=== PATIENT | female | born 1980 | race Caucasian/White ===

== ENCOUNTER → 2016-11-14 | Outpatient (CLI) | payer OTHER ==
[2016-11-14 13:12] VITALS: RESP 18
[2016-11-14 13:18] VITALS: BP 133/89; PULSE 69; TEMP 98.1
--- NOTE | 2016-11-14 13:31 | P.HPIM ---
History of Present Illness H&P Date: 11/14/16 Chief Complaint: neck pain and headaches This is a 36-year-old patient referred by Dr. 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 Patient has been taking medications from neurologist including Fioricet and Motrin medications with some relief. Patient denies adverse drug effects from medications. Patient also denies new-onset weakness, bowel/bladder incontinence, or any other signs or symptoms of cauda equina syndrome. There are no signs of acute intoxication, and no indications of medication diversion or overuse. Patient notes that pain worsens significantly with driving and with movement of her head and improves with medication. Patient has used several types of medications for pain, including NSAIDS, TRAMADOL, Fioricet. Patient HAS NOT had surgery. Patient HAS NOT had injections previously. Patient HAS NOT had physical therapy recently. In addition to above, 13-point review of systems is also negative for chest pain , shortness of breath, changes in vision, changes in hearing, new onset weakness , abdominal pain, diarrhea, extreme fatigue, malaise, fever, skin changes, homicidal or suicidal ideation, or bowel or bladder incontinence. Vital Signs: Reviewed in EMR Gen: WDWN, AAOx3, NAD HEENT: NCAT, EOMI, hearing grossly normal; + TTP over occipital ridges bilaterally, L > R Pulm: resp unlabored Abd: soft, NT, ND Neuro: CN II-XII grossly intact, muscle strength upper extremities grossly PRESERVED Past Medical History Smoking Status: Former smoker Medications and Allergies Home Medications Medication Instructions Recorded Confirmed Type ALPRAZolam [Xanax] 0.25 mg PO PRN 11/14/16 History Acetaminophen Tab [Tylenol] 650 mg PO PRN 11/14/16 11/14/16 History Aspirin 325 mg PO DAILY 11/14/16 11/14/16 History Butalb/APAP/Caff 50-325-40Mg 1 cap PO PRN 11/14/16 History [Fioricet 50-325-40] Ibuprofen 600 mg PO PRN 11/14/16 History Ketorolac [Toradol] 10 mg PO PRN 11/14/16 History Multivitamin [Multiple Vitamins] 1 cap PO DAILY 11/14/16 11/14/16 History Propranolol HCl [Inderal] 60 mg PO BID 11/14/16 11/14/16 History Topiramate [Topamax] 100 mg PO DAILY 11/14/16 11/14/16 History Zolpidem [Ambien] 10 mg PO PRN 11/14/16 History Allergies Allergy/AdvReac Type Severity Reaction Status Date / Time amoxicillin AdvReac Rash/Hives Verified 11/14/16 12:52 tramadol [From Ultram] AdvReac Nausea & Verified 11/14/16 12:52 Vomiting Physical Exam Vitals: Vital Signs Resp 11/14/16 13:01 18 Intake and Output 11/13/16 11/14/16 11/14/16 22:59 06:59 14:59 Other: Weight 54.431 kg Patient Weight 11/15/16 06:59 Weight 54.431 kg Results Comments: Computed tomography scan of the head without contrast dated 07/16/2016 demonstrates low attenuation at the right inferior cerebellum compatible with prior infarct. There is no evidence of hemorrhage or hydrocephalus, calvarium is intact, paranasal sinuses and mastoid air cells are visualized as normal. Assessment and Plan (1) Bilateral occipital neuralgia Status: Chronic (2) Chronic headache Status: Chronic Plan: 1. Explanation: Opioid and psychological risk scores were reviewed. Diagnoses , prognoses, and multiple treatment options including but not limited to physical therapy, interventional therapies, adjuvant medical therapies, narcotic medication therapies, and surgery were discussed with the patient and all questions were answered to the patient's satisfaction. 2. Opioid agreement: Patient signed narcotic agreement, and was orally counseled to not overuse, abuse, divert, or cell medications, and to take them as prescribed by only 1 healthcare provider. The patient was also counseled to take medications as prescribed by only 1 healthcare provider and to store opioid medications in the safe and preferably locked location. Patient was also counseled against driving or operating heavy equipment while using narcotic medications and also not use alcohol or any illicit or recreational drugs. The patient verbalized understanding that lack of compliance with any of the above and likely result in failure to renew narcotic prescriptions, possible discharge from the clinic, and possible legal ramifications thereafter if indicated. 3. Counseling: The patient was counseled extensively on BODY MASS INDEX, EXERCISE. Specifically, the patient was instructed regarding the importance of weight control and exercise in the context of both chronic pain and overall health. 4. Procedures: bilateral occipital nerve block 5. Consultations: none 6. Investigations: none 7. Medications: none 8. Disposition: f/u for procedure as scheduled. If patient has little relief of headaches with ONBs, will consider MRI C-spine in future PQRS measures: 1-Patient's medications are documented in the chart. 2-Tobacco use is negative 3-Patient has not had a pneumococcal vaccine. 4-Advanced care planning discussed, patient unable to give. 5-Opioid contract NOT signed with the patient. 6-Pain positive, follow-up visit or procedure scheduled 7-Patient's blood pressure measured and documented, and patient will follow up with the primary care due to hypertension. 8-Patient's weight was measured, and body mass index within the normal limits 9-Patient WAS NOT identified as an unhealthy alcohol user. Time with Patient: Less than 30
== END | disposition home or self-care (01) ==
LOC: PNWHC3 12:45
PROVIDERS: ATTEND Anesthesiology
DX: M54.81 Occipital neuralgia (principal); R51 Headache; Z79.899 Other long term (current) drug therapy; Z79.82 Long term (current) use of aspirin; Z88.0 Allergy status to penicillin; Z88.6 Allergy status to analgesic agent
CPT/HCPCS: 99201

== ENCOUNTER → 2016-12-06 | Outpatient (CLI) | payer OTHER ==
--- NOTE | 2016-12-06 20:20 | MR ---
EXAMINATION TYPE: MR brain wo con DATE OF EXAM: 12/06/2016 COMPARISON: NONE HISTORY: Migraine headaches without Aura TECHNIQUE: Multiplanar, multisequence imaging of the brain and brainstem is performed without IV cont rast. FINDINGS: Diffusion weighted images demonstrate no evidence of a recent infarct or other diffusion abnormality. There is no extraaxial fluid collection or significant white matter signal abnormality. The ventricu lar system and cisternal spaces are normal in size and appearance. The brain volume is age appropria te. There is old infarct involving posterior central right cerebellar hemisphere seen best on axial i mage 6. Midline structures demonstrate normal morphology. The craniocervical junction appears within normal limits. Normal vascular flow voids are present. Dominant left vertebral artery is noted. The visualiz ed sinuses are clear. Globes are distorted by artifact. IMPRESSION: Old right cerebellar infarct.
--- NOTE | 2016-12-06 20:22 | MR ---
EXAMINATION TYPE: MR angio head wo con DATE OF EXAM: 12/06/2016 COMPARISON: NONE HISTORY: Migraine headaches without aura. TECHNIQUE: Time of flight images focusing on the [place] were performed without contrast.. 2-D and 3-D postprocessing imaging is performed. FINDINGS: There is dominant left vertebral artery. Vertebral arteries are patent to basilar junction. There is patent right posterior communicating artery. There is hypoplastic left posterior communicat ing artery. No significant stenosis or aneurysmal change is seen in the posterior circulation. Images of the anterior circulation show patent anterior communicating artery. There is no significant focal stenosis or aneurysmal change in the anterior circulation. IMPRESSION: No significant focal stenosis or aneurysmal change at the level of the [place].
== END | disposition home or self-care (01) ==
LOC: RADMRIMAIN 16:29
PROVIDERS: ATTEND Psychiatry & Neurology Neurology
DX: G43.909 Migraine, unspecified, not intractable, without status migrainosus (principal)
CPT/HCPCS: 70544; 70551

== ENCOUNTER 2016-12-07 06:35 | Day surgery (SDC) | payer OTHER ==
[2016-12-05 14:43] VITALS: BMI 20.7
[~2016-12-07 06:35] MED LIST: LACTATED RINGERS 1,000 ML IV SCH
[2016-12-07 07:16] VITALS: RESP 16; TEMP 97.7
[2016-12-07] MEDS ORDERED: LIDOCAINE 1% 20 ML VIAL (10MG/ML) FOR IV START INTRADERMA ONE (07:27)
[2016-12-07] MEDS ORDERED: MIDAZOLAM 2 MG/2 ML VIAL ONE (07:40)
[2016-12-07] MEDS ORDERED: fentaNYL (PF) 50 MCG/ML 2 ML AMP ONE (07:40)
[2016-12-07] MEDS ORDERED: BUPIVACAINE (PF) 0.75% 30 ML VIAL ONE (07:40)
[2016-12-07] MEDS ORDERED: TRIAMCINOLONE ACETONIDE 40 MG/ML 1 ML VIAL ONE (07:40)
--- NOTE | 2016-12-07 07:55 | P.PCN ---
Date of Procedure: 12/07/16 Preoperative Diagnosis: Postoperative Diagnosis: Procedure(s) Performed: Pre-operative diagnosis: 1- Bilateral occipital neuralgea Post Operative Diagnosis 1- Bilateral occipital neuralgea Procedure: 1- Bilateral occipital nerve block ANESTHESIA: Conscious sedation with Versed. 2 mg and fentanyl 100 micrograms EBL: Minimal PROCEDURE INDICATION: The patient with neck pain and headache secondary to occipital neuralgea unresponsive to conservative treatments. PROCEDURE DESCRIPTION / TECHNIQUE: The patient was seen and identified in the preoperative area. Risks, benefits, complications, and alternatives were discussed with the patient, the patient agreed to proceed with the procedure and signed the consent. IV was started. Vital signs remained stable throughout the procedure. Patient was taken to the OR and time out was completed. The patient was placed in the pron (sitting ) position on the procedure table. A pillow was placed under the patients chest to increase the cervical interlaminar space. The cervical area and right occiptial area were prepped with alcohol swab. Critical pause was taken. Vital signs were closely monitored during the procedure. Conscious sedation was used during the procedure to decrease patients anxiety. The right occiptal ridge was palpated and was then accessed with a 25 G needle. Then after negative aspiration, 6 ml of the block solution containing 6 ml of PF Buvicaine 0.75% and Kenalog 40 mg was injected. Needle was withdrawn intact. Then the same procedure was repeated on the left side and related the left occipital nerve block, after negative aspiration 6 mL of the block solution containing ropivacaine 0.5% and 40 mg of Kenalog injected after negative aspiration Patient tolerated procedure well. No acute complications. Implants: Indications for Procedure: Operative Findings: Description of Procedure:
[2016-12-07] MEDS ORDERED: IV FLUID CONTINUATION 1,000 ML IV ONE (07:56)
[2016-12-07] MEDS ORDERED: ONDANSETRON 4 MG/2 ML VIAL IVP ONE (08:06)
[2016-12-07 08:14] VITALS: BP 118/82; PULSE 60
== END 2016-12-07 08:48 | disposition home or self-care (01) ==
LOC: ORPAIN 06:35
PROVIDERS: ATTEND Specialist
DX: M54.81 Occipital neuralgia (principal); Z88.1 Allergy status to other antibiotic agents; Z91.09 Other allergy status, other than to drugs and biological substances
CPT/HCPCS: 81025; 64405; J2250; J3301; J2405; J3010

== ENCOUNTER → 2017-01-26 | Outpatient (CLI) | payer OTHER ==
--- NOTE | 2017-01-26 13:07 | US ---
EXAMINATION TYPE: US pelvic complete DATE OF EXAM: 01/26/2017 COMPARISON: NONE CLINICAL HISTORY: Z97.5 Presence of (intrauterine) contraceptive dev`. TECHNIQUE: Transabdominal (TA) EXAM MEASUREMENTS: Uterus: 9.7 x 4.0 x 4.0 cm Endometrial Stripe: 0.3 cm Right Ovary: 2.9 x 1.4 x 1.6 cm Left Ovary: 2.3 x 1.7 x 1.6 cm 1. Uterus: Anteverted IUD appears to be in place 2. Endometrium: wnl 3. Right Ovary: wnl 4. Left Ovary: wnl 5. Bilateral Adnexa: wnl 6. Posterior cul-de-sac: wnl IMPRESSION: 1. Normal pelvic ultrasound. 2. IUD Appears to be within the uterus.
== END | disposition home or self-care (01) ==
LOC: RADUSWWP 11:37
PROVIDERS: ATTEND Obstetrics & Gynecology
DX: Z30.431 Encounter for routine checking of intrauterine contraceptive device (principal)
CPT/HCPCS: 76856